=== PATIENT | male | born 1990 | race Caucasian/White ===

== ENCOUNTER → 2020-03-23 08:09 | Outpatient (CLI) | payer OTHER ==
--- NOTE | 2020-03-23 09:17 | NUR ---
PT CONSENTED FOR A LEFT SHOULDER ARTHROGRAM WITH MRI TO FOLLOW. TIME OUT PERFORMED AT 0902 BY CARIDAD GAN(R) AND DR BASSETT. PT HAS NO KNOWN DRUG ALLERGIES AND NO BLOOD THINNERS.
== END | disposition home or self-care (01) ==
LOC: D.RAD 03-14 14:00
PROVIDERS: ATTEND Orthopaedic Surgery
DX: S43.432A Superior glenoid labrum lesion of left shoulder, initial encounter (principal)

== ENCOUNTER → 2020-03-23 20:54 | Outpatient (CLI) | payer OTHER | END | disposition home or self-care (01) | LOC: D.LABREF 20:54 | PROVIDERS: ATTEND Orthopaedic Surgery | DX: M17.12 Unilateral primary osteoarthritis, left knee (principal) ==

== ENCOUNTER 2020-04-14 07:37 | Day surgery (SDC) | payer OTHER ==
[~2020-04-14] VITALS: Ht 170.2 cm; Wt 70.3 kg
[2020-04-14 09:13] LABS: HEMATOCRIT 46.1 % (42.0-54.0); HEMOGLOBIN 16.3 g/dL (13.5-17.5); MCH 30.1 pg (26.0-34.0); MCHC 35.4 g/dL (31.0-37.0); MCV 85.1 fL (80.0-100.0); MEAN PLATELET VOLUME 10.1 fL (7.4-10.4); RBC 5.42 10x6/uL (4.20-6.10); RDW 12.9 % (11.5-14.5); WBC 8.2 10x3/uL (4.8-10.8)
[2020-04-14 09:44] VITALS: BP 126/87; Ht 170.2 cm; Wt 70.3 kg
[2020-04-14] MEDS ORDERED: ZOFRAN ODT4 MG/UDTAB PO (13:21)
--- NOTE | 2020-04-14 15:49 | NUR ---
1500 IV REMOVED AND INSTRUCTIONS GIVEN TO . ASSISTED WITH GETTING DRESSED AND PT VOIDED.
--- NOTE | 2020-04-16 11:03 | OP ---
PATIENT NAME: JONG LOU MEDICAL RECORD: [id number] :88 LOCATION:[facility] ADMISSION DATE: SURGEON: RANJEET MALIK DO DATE OF OPERATION: 04/14/2020 PROCEDURE PERFORMED: Left shoulder arthroscopy with subacromial decompression and distal clavicle excision, biceps tenodesis and rotator cuff repair. PREOPERATIVE DIAGNOSIS: Partial rotator cuff tear, superior labrum anterior and posterior tear, subacromial impingement and acromioclavicular joint arthritis. POSTOPERATIVE DIAGNOSIS: Partial rotator cuff tear, superior labrum anterior and posterior tear, subacromial impingement and acromioclavicular joint arthritis. INDICATIONS: Mr. Lou is a 29-year-old male who had an injury. He says it was quite some time ago and he is tired of dealing with shoulder pain. We got an MRI showing the above findings. We informed him of the risks including infection, bleeding, damage to nerves or vessels, need for further surgery, arthrofibrosis or frozen shoulder syndrome, continued pain, loss of strength, need for further surgery, and he signed the consent. SURGEON: Ranjeet Malik DO DESCRIPTION OF THE PROCEDURE: The patient was taken to the operative suite, laid in the right lateral decubitus position after given a block by anesthesia in the preoperative area, given 900 mg clindamycin. He was sedated and LMA was placed. The left shoulder was then prepped and draped in sterile fashion. Timeout was performed. Everyone was agreeance with correct side, site, patient, and procedure. I then inflated the shoulder joint with 60 cc normal saline through a posterior portal with an 18-gauge spinal needle and then established a portal with an 11-blade scalpel. Trocar was entered into the joint. I then entered the camera into the joint. I established an anterior portal with an 18-gauge spinal needle and 11-blade scalpel and trocar. I inspected the superior labrum and the SLAP tear. The anterior and posterior SLAP tear and then I inspected the supraspinatus and I had a proximal 50% tear in the supraspinatus on the articular side. Infraspinatus is in a good shape as well as the subscapularis. I then brought in a bur and cut the long head of the biceps tendon and then went to the subacromial space, established a lateral portal using 18-gauze spinal needle and an 11-blade scalpel, trocar was then entered in. I then did a subacromial decompression with an acromioplasty and through the anterior portal, distal clavicle excision, opened up the AC joint approximately 7 mm. I then inspected the rotator cuff on the bursal side. No clear tear seen there. I then put the camera back in the joint, marked the rotator cuff tear on the articular side with an 18-guaze spinal needle. I then opened the lateral portal with a 15 blade scalpel, extending that and made blunt dissection down to the rotator cuff tendon tear, placed a large Regeneten implant on it and stapled it medially and laterally. I then opened the arm on the anterior humerus, made careful dissection down to the long head of biceps tendon, took it out and put a unicortical 2.9 JuggerLoc loop stitch anchor in the humerus and cinched down the long head of the bicep tendon. I then cut the excess suture of the loop and then tied it through with a free needle to the long head of the bicep tendon and then tied that down and cut the excess tendon and suture. I then irrigated all sites. Driss Hernandez, certified executive chef and I closed each site; the 2 open sites with 2-0 Vicryl inverted OPERATIVE REPORT [id number] JONG LOU interrupted fashion, 4-0 Monocryl running on the skin, and then the portal sites anterior and posterior with 4-0 Monocryl inverted interrupted fashion. I then placed Dermabond glue on all of them and dressed with Telfa and Tegaderm. He was then awakened and taken to recovery put in a sling in stable condition. BLOOD LOSS: Minimal. COMPLICATIONS: None. TRANSINT:[id number] Voice Confirmation ID: [id number] DOCUMENT ID: [id number] RANJEET MALIK DO at 1103 CC: [id number] DICTATION DATE: 04/14/20 1314 PHOTOFINISHING LABORATORY WORKER: 04/14/207 [facility] 04/14/20 [place] [address]
== END 2020-04-14 15:15 | disposition home or self-care (01) ==
LOC: D.OPS 07:37 → D.PAN 10:45 → D.OPS 15:15
PROVIDERS: Anesthesiology; ATTEND Orthopaedic Surgery
DX: S46.022A Laceration of muscle(s) and tendon(s) of the rotator cuff of left shoulder, initial encounter (principal); X58.XXXA Exposure to other specified factors, initial encounter; S43.432A Superior glenoid labrum lesion of left shoulder, initial encounter; M25.812 Other specified joint disorders, left shoulder; M19.012 Primary osteoarthritis, left shoulder